=== PATIENT | female | born 1940 | race Two or more races ===

== ENCOUNTER → 2018-01-23 | Outpatient (CLI) | payer OTHER | END | disposition home or self-care (01) | LOC: NUCLEAR 14:00 | DX: M81.0 Age-related osteoporosis without current pathological fracture (principal); E03.8 Other specified hypothyroidism ==

== ENCOUNTER 2018-11-04 15:23 | Outpatient (CLI) | payer OTHER | END 2018-11-04 15:31 | disposition home or self-care (01) | LOC: RAD 501 15:23 | DX: M54.5 Low back pain (principal); M51.87 Other intervertebral disc disorders, lumbosacral region ==

== ENCOUNTER 2019-02-03 14:23 | Outpatient (CLI) | payer OTHER | END 2019-02-03 15:07 | disposition home or self-care (01) | LOC: MRI 14:23 | DX: M51.87 Other intervertebral disc disorders, lumbosacral region (principal); M43.16 Spondylolisthesis, lumbar region; M54.5 Low back pain | CPT/HCPCS: 72148 ==

== ENCOUNTER 2019-02-19 14:17 | Outpatient (CLI) | payer OTHER | END 2019-02-19 14:22 | disposition home or self-care (01) | LOC: MAMO-SONO 14:17 | DX: N64.4 Mastodynia (principal); Z12.31 Encounter for screening mammogram for malignant neoplasm of breast; Z87.898 Personal history of other specified conditions ==

== ENCOUNTER 2019-08-20 14:30 | Outpatient (CLI) | payer OTHER | END 2019-08-20 14:35 | disposition home or self-care (01) | LOC: SONOGRAMA 14:30 → MAMO-SONO 14:45 | DX: E04.8 Other specified nontoxic goiter (principal) ==

== ENCOUNTER 2021-06-21 15:07 | Outpatient (CLI) | payer OTHER | END 2021-06-21 15:13 | disposition home or self-care (01) | LOC: RAD 15:07 | PROVIDERS: ATTEND General Practice | DX: M25.552 Pain in left hip (principal); M25.551 Pain in right hip; M81.0 Age-related osteoporosis without current pathological fracture ==

== ENCOUNTER 2021-12-29 13:02 | Outpatient (CLI) | payer OTHER | END 2021-12-29 13:05 | disposition home or self-care (01) | LOC: SONOGRAMA 13:02 | PROVIDERS: ATTEND Specialist/Technologist, Other Nephrology | DX: R10.9 Unspecified abdominal pain (principal); N18.30 Chronic kidney disease, stage 3 unspecified; R31.9 Hematuria, unspecified ==

== ENCOUNTER → 2022-03-12 | Outpatient (CLI) | payer OTHER | END | disposition home or self-care (01) | LOC: NUCLEAR 13:42 | PROVIDERS: ATTEND Internal Medicine Rheumatology | DX: M81.0 Age-related osteoporosis without current pathological fracture (principal); Z88.2 Allergy status to sulfonamides; Z88.6 Allergy status to analgesic agent ==

== ENCOUNTER 2022-04-24 13:13 | Outpatient (CLI) | payer OTHER | END 2022-04-24 13:23 | disposition home or self-care (01) | LOC: MAMO-SONO 13:13 | PROVIDERS: ATTEND General Practice | DX: Z12.31 Encounter for screening mammogram for malignant neoplasm of breast (principal); N64.4 Mastodynia ==

== ENCOUNTER 2023-01-29 15:42 | Outpatient (CLI) | payer OTHER | END 2023-01-29 15:52 | disposition home or self-care (01) | LOC: RAD 15:42 | PROVIDERS: ATTEND General Practice | DX: M54.50 Low back pain, unspecified (principal); M25.551 Pain in right hip; M25.552 Pain in left hip ==

== ENCOUNTER 2023-12-16 16:06 | Outpatient (CLI) | payer OTHER | END 2023-12-16 16:11 | disposition home or self-care (01) | LOC: RAD 16:06 | DX: J32.9 Chronic sinusitis, unspecified (principal); J20.9 Acute bronchitis, unspecified ==

== ENCOUNTER 2025-09-07 16:06 | Outpatient (CLI) | payer OTHER ==
[~2025-09-07 16:06] MED LIST: ZANAFLEX2 MG PO
== END 2025-09-07 16:12 | disposition home or self-care (01) ==
LOC: RAD 16:06
PROVIDERS: ATTEND General Practice
DX: R06.02 Shortness of breath (principal); J40 Bronchitis, not specified as acute or chronic